=== PATIENT | female | born 1985 | race Caucasian/White ===

== ENCOUNTER 2020-11-28 17:06 | Emergency (ER) | payer OTHER ==
[~2020-11-28 17:06] MED LIST: IBUPROFEN800 MG PO; ONDANSETRON ODT4 MG SL; ROBAXIN750 MG PO; [UNRECOGNIZED DRUG - CODE] IM
[2020-11-28] MEDS ORDERED: DICLOFENAC SODI75 MG PO (19:52)
== END 2020-11-28 20:05 | disposition home or self-care (01) ==
LOC: FER 17:06
DX: S39.012A Strain of muscle, fascia and tendon of lower back, initial encounter (principal); X50.1XXA Overexertion from prolonged static or awkward postures, initial encounter; Y92.89 Other specified places as the place of occurrence of the external cause; Y99.0 Civilian activity done for income or pay
CPT/HCPCS: 72110; J1885

== ENCOUNTER 2021-02-10 19:41 | Emergency (ER) | payer OTHER ==
[~2021-02-10 19:41] MED LIST changes: +DICLOFENAC SODI75 MG PO
[2021-02-10 21:17] LABS: BILIRUBIN NEGATIVE (NEGATIVE); BLOOD TRACE-INTACT Ery/uL (NEGATIVE); COLOR YELLOW (YELLOW); GLUCOSE (U) NORMAL (NORMAL); LEUKOCYTES NEGATIVE Leu/uL (NEGATIVE); NITRITE NEGATIVE (NEGATIVE); PROTEIN NEGATIVE (NEGATIVE); SPECIFIC GRAVITY 1.025 (1.001-1.030); UROBILINOGEN 0.2 mg/dL (0.2-1.0)
[2021-02-10 21:20] LABS: CLARITY SLIGHTLY HAZY (CLEAR)
[2021-02-10 21:29] LABS: SQUAMOUS EPITHELIAL CELLS RARE; URINARY WBC RARE
== END 2021-02-10 22:16 | disposition home or self-care (01) ==
LOC: FER 19:41
PROVIDERS: Nurse Practitioner Family
DX: N94.89 Other specified conditions associated with female genital organs and menstrual cycle (principal)
CPT/HCPCS: 81001; 99283; J0696

== ENCOUNTER 2021-04-26 16:01 | Emergency (ER) | payer OTHER ==
[2021-04-26] MEDS ORDERED: CEPHALEXIN500 MG PO (17:56)
== END 2021-04-26 18:05 | disposition home or self-care (01) ==
LOC: FER 16:01
DX: S00.83XA Contusion of other part of head, initial encounter (principal); S00.212A Abrasion of left eyelid and periocular area, initial encounter; Z23 Encounter for immunization; Y09 Assault by unspecified means; Y92.009 Unspecified place in unspecified non-institutional (private) residence as the place of occurrence of the external cause
CPT/HCPCS: 90471; 90715

== ENCOUNTER 2021-07-17 13:48 | Emergency (ER) | payer OTHER ==
[~2021-07-17 13:48] MED LIST changes: +CEPHALEXIN500 MG PO
[2021-07-17 14:49] LABS: MONOSPOT (MONONUCLEOSIS) NEGATIVE (NEGATIVE)
== END 2021-07-17 18:16 | disposition home or self-care (01) ==
LOC: FER 13:48
PROVIDERS: Emergency Medicine
DX: Z20.828 Contact with and (suspected) exposure to other viral communicable diseases (principal)
CPT/HCPCS: 86308; 99282

== ENCOUNTER 2021-07-28 15:41 | Emergency (ER) | payer OTHER | END 2021-07-28 19:30 | disposition home or self-care (01) | LOC: FER 15:41 | DX: O98.511 Other viral diseases complicating pregnancy, first trimester (principal); U07.1 COVID-19; Z3A.09 9 weeks gestation of pregnancy | CPT/HCPCS: 99283; U0002 ==

== ENCOUNTER 2021-07-30 23:37 | Emergency (ER) | payer OTHER ==
[2021-07-31 01:24] LABS: EOSINOPHIL 0.6 % (0-5); HCT 38.9 % (37.0-47.0); HGB 13.2 g/dl (12.5-16.0); LYMPHOCYTE 29.7 % (15-48); MCH 28.4 pg (25.0-31.0); MCHC 33.9 g/dL (32.0-36.0); MCV 83.7 fL (78.0-100.0); MONOCYTE 11.2 % (0-12); MPV 8.6 fL (6.0-9.5); NEUTROPHIL 51.2 % (41-80); NRBC 0; PLT 182 K/uL (150-400); RBC 4.65 M/uL (4.20-5.40)
[2021-07-31 01:29] LABS: WBC 5.1 K/uL (4.0-10.5)
[2021-07-31 01:41] LABS: ALBUMIN 3.1 g/dL (3.4-5.0); BILIRUBIN - TOTAL 0.2 mg/dL (0.2-1.0); BUN/CREAT RATIO (CALC) 16.9 RATIO; CREATININE 0.59 mg/dL (0.51-0.95); GLOBULIN (CALCULATION) 4.3 g/dL; MAGNESIUM 1.6 mg/dL (1.8-2.4); POTASSIUM 3.4 mmol/L (3.5-5.1); TOTAL PROTEIN 7.4 g/dL (6.4-8.2)
[2021-07-31] MEDS ORDERED: PHENERGAN12.5 M1 PO (02:28)
[2021-07-31 02:46] LABS: BILIRUBIN 1+ mg/dL (NEGATIVE); BLOOD 2+ Ery/uL (NEGATIVE); CLARITY CLEAR (CLEAR); COLOR YELLOW (YELLOW); GLUCOSE (U) NORMAL (NORMAL); LEUKOCYTES 1+ Leu/uL (NEGATIVE); NITRITE NEGATIVE (NEGATIVE); PROTEIN 1+ mg/dL (NEGATIVE); SPECIFIC GRAVITY >=1.030 (1.001-1.030); UROBILINOGEN 0.2 mg/dL (0.2-1.0); pH 5.5 (5.0-9.0)
[2021-07-31 02:56] LABS: BACTERIA 2+; SQUAMOUS EPITHELIAL CELLS >50
[2021-07-31] MEDS ORDERED: CEPHALEXIN500 M1 PO (03:12)
[2021-08-04 00:08] LABS: CHLAMYDIA TRACHOMATIS, NAA Negative (Negative); NEISSERIA GONORRHOEAE, NAA Negative (Negative)
== END 2021-07-31 03:34 | disposition home or self-care (01) ==
LOC: FER 23:37
PROVIDERS: Emergency Medicine Emergency Medical Services
DX: O98.511 Other viral diseases complicating pregnancy, first trimester (principal); U07.1 COVID-19; O98.311 Other infections with a predominantly sexual mode of transmission complicating pregnancy, first trimester; A59.9 Trichomoniasis, unspecified; Z3A.10 10 weeks gestation of pregnancy
CPT/HCPCS: 36415; 71045; 80053; 81001; 83735; 85025; 87210; 87491; 87591; J7120

== ENCOUNTER 2021-11-23 21:29 | Emergency (ER) | payer OTHER ==
[~2021-11-23 21:29] MED LIST changes: +CEPHALEXIN500 M1 PO; +PHENERGAN12.5 M1 PO
[2021-11-23 22:42] LABS: CORONAVIRUS 2019 SARS-COV-2 POSITIVE (NEGATIVE); INFLUENZA A NAA NEGATIVE (NEGATIVE)
[2021-11-23 23:18] LABS: BASOPHIL 0.3 % (0-2); EOSINOPHIL 2.2 % (0-5); HCT 37.1 % (37.0-47.0); HGB 12.5 g/dl (12.5-16.0); LYMPHOCYTE 13.7 % (15-48); MCH 28.6 pg (25.0-31.0); MCHC 33.7 g/dL (32.0-36.0); MCV 84.9 fL (78.0-100.0); MONOCYTE 7.9 % (0-12); NEUTROPHIL 74.2 % (41-80); NRBC 0; PLT 254 K/uL (150-400); RBC 4.37 M/uL (4.20-5.40); RDW 13.2 % (11.5-14.0)
[2021-11-23 23:35] LABS: BUN/CREAT RATIO (CALC) 12.5 RATIO; CREATININE 0.64 mg/dL (0.51-0.95); POTASSIUM 3.7 mmol/L (3.5-5.1)
[2021-11-24 01:00] LABS: ALBUMIN 2.8 g/dL (3.4-5.0); BILIRUBIN - DIRECT 0.1 mg/dL (0.00-0.20); BILIRUBIN - TOTAL 0.2 mg/dL (0.2-1.0); GLOBULIN (CALCULATION) 4.2 g/dL
[2021-11-24 01:15] LABS: BILIRUBIN NEGATIVE (NEGATIVE); BLOOD NEGATIVE Ery/uL (NEGATIVE); CLARITY CLEAR (CLEAR); COLOR YELLOW (YELLOW); GLUCOSE (U) NORMAL (NORMAL); LEUKOCYTES NEGATIVE Leu/uL (NEGATIVE); NITRITE NEGATIVE (NEGATIVE); PROTEIN NEGATIVE (NEGATIVE); SPECIFIC GRAVITY 1.025 (1.001-1.030); UROBILINOGEN 0.2 mg/dL (0.2-1.0)
[2021-11-24] MEDS ORDERED: PULMICORT0.5 MG/2 M NEB (05:06)
[2021-11-24] MEDS ORDERED: VENTOLIN (2.5 MG/3 M INH (05:06)
== END 2021-11-24 05:41 | disposition home or self-care (01) ==
LOC: FER 21:29
PROVIDERS: Emergency Medicine Emergency Medical Services; Internal Medicine
DX: O98.512 Other viral diseases complicating pregnancy, second trimester (principal); O13.2 Gestational [pregnancy-induced] hypertension without significant proteinuria, second trimester; O09.522 Supervision of elderly multigravida, second trimester; U07.1 COVID-19; Z3A.27 27 weeks gestation of pregnancy
CPT/HCPCS: 36415; 71045; 80048; 80076; 81003; 84145; 84484; 85025; 93005; U0002

== ENCOUNTER 2021-12-31 18:23 | Emergency (ER) | payer OTHER ==
[~2021-12-31 18:23] MED LIST changes: +PULMICORT0.5 MG/2 M NEB; +VENTOLIN (2.5 MG/3 M INH
[2021-12-31 21:38] LABS: BASOPHIL 0.5 % (0-2); EOSINOPHIL 8.2 % (0-5); HCT 35.1 % (37.0-47.0); LYMPHOCYTE 18.7 % (15-48); MCH 28.6 pg (25.0-31.0); MCHC 34.2 g/dL (32.0-36.0); MCV 83.6 fL (78.0-100.0); MONOCYTE 5.5 % (0-12); MPV 9.1 fL (6.0-9.5); NEUTROPHIL 65.5 % (41-80); NRBC 0; PLT 235 K/uL (150-400); RDW 13.4 % (11.5-14.0); WBC 11.2 K/uL (4.0-10.5)
[2021-12-31 21:58] LABS: ALBUMIN 2.5 g/dL (3.4-5.0); BILIRUBIN - DIRECT 0.1 mg/dL (0.00-0.20); BILIRUBIN - TOTAL 0.3 mg/dL (0.2-1.0); BUN/CREAT RATIO (CALC) 11.3 RATIO; CREATININE 0.53 mg/dL (0.51-0.95); POTASSIUM 3.6 mmol/L (3.5-5.1); TOTAL PROTEIN 6.5 g/dL (6.4-8.2)
[2021-12-31 22:12] LABS: CORONAVIRUS 2019 SARS-COV-2 NEGATIVE (NEGATIVE); INFLUENZA A NAA NEGATIVE (NEGATIVE)
[2022-01-01 00:16] LABS: ALBUMIN 2.3 g/dL (3.4-5.0); BILIRUBIN - TOTAL 0.2 mg/dL (0.2-1.0); BUN/CREAT RATIO (CALC) 14.5 RATIO; CREATININE 0.55 mg/dL (0.51-0.95); GLOBULIN (CALCULATION) 3.7 g/dL; POTASSIUM 3.1 mmol/L (3.5-5.1)
[2022-01-01 03:52] LABS: BILIRUBIN NEGATIVE (NEGATIVE); BLOOD NEGATIVE Ery/uL (NEGATIVE); CLARITY CLEAR (CLEAR); COLOR YELLOW (YELLOW); GLUCOSE (U) NORMAL (NORMAL); LEUKOCYTES 1+ Leu/uL (NEGATIVE); NITRITE NEGATIVE (NEGATIVE); PROTEIN NEGATIVE (NEGATIVE); UROBILINOGEN 0.2 mg/dL (0.2-1.0)
[2022-01-01 03:59] LABS: BACTERIA TRACE
[2022-01-01 04:07] LABS: URINE CREATININE 55.11 mg/dL (29.00-226.00); URINE TOTAL PROTEIN-RANDOM <6.0 mg/dL (<11.9)
== END 2022-01-01 06:10 | disposition other institution (70) ==
LOC: FER 18:23
PROVIDERS: Emergency Medicine Emergency Medical Services; Nurse Practitioner Family
DX: O99.891 Other specified diseases and conditions complicating pregnancy (principal); O09.523 Supervision of elderly multigravida, third trimester; O14.93 Unspecified pre-eclampsia, third trimester; O10.913 Unspecified pre-existing hypertension complicating pregnancy, third trimester; R05.9 Cough, unspecified; Z3A.32 32 weeks gestation of pregnancy; Z20.822 Contact with and (suspected) exposure to COVID-19
CPT/HCPCS: 36415; 71045; 80048; 80053; 80076; 81001; 82570; 83880; 84156; 84484; 85025; 94640; 94664; J0702; J7030; U0002

== ENCOUNTER 2022-04-01 23:34 | Emergency (ER) | payer OTHER ==
[2022-04-02] MEDS ORDERED: ULTRAM50 MG PO ×2 (00:22→02:16)
== END 2022-04-02 02:33 | disposition home or self-care (01) ==
LOC: FER 23:34
DX: S93.401A Sprain of unspecified ligament of right ankle, initial encounter (principal); Z28.310 Unvaccinated for COVID-19; X50.1XXA Overexertion from prolonged static or awkward postures, initial encounter; Y92.89 Other specified places as the place of occurrence of the external cause; Y99.0 Civilian activity done for income or pay
CPT/HCPCS: 73610